=== PATIENT | female | born 1970 | race Caucasian/White ===

== ENCOUNTER 2017-04-29 07:19 | Day surgery (SDC) | payer BC, OTHER ==
[2017-04-25 13:05] VITALS: BMI 23.3
[2017-04-29] MEDS ORDERED: BUPIVACAINE HCL/PF 0.5% (5MG/ML) 10 ML VIAL ONE (08:44)
[2017-04-29] MEDS ORDERED: ePHEDrine SULFATE 50 MG/1 ML AMPULE ONE (08:52)
[2017-04-29] MEDS ORDERED: SUCCINYLCHOLINE CHLORIDE 200 MG/10 ML VIAL ONE (08:52)
[2017-04-29] MEDS ORDERED: PROPOFOL 20 ML ONE (08:52)
[2017-04-29] MEDS ORDERED: MIDAZOLAM HCL 2 MG/2 ML SINGLE DOSE VIAL ONE (08:53)
[2017-04-29] MEDS ORDERED: ROCURONIUM BROMIDE 50 MG/5 ML VIAL ONE (08:53)
[2017-04-29] MEDS ORDERED: LIDOCAINE HCL/PF 2% SDV 5ML VIAL ONE (08:55)
[2017-04-29] MEDS ORDERED: DEXAMETHASONE SOD PHOSPHATE 4 MG/1 ML VIAL ONE (08:55)
[2017-04-29] MEDS ORDERED: DESFLURANE GAS 240 ML BOTTLE IH ONE (08:59)
[2017-04-29] MEDS ORDERED: CLINDAMYCIN 600 MG PREMIX BAG IVPB ONE (09:16)
--- NOTE | 2017-04-29 09:17 | HP ---
Admitting History and Physical - Admission History of Present Illness: 46 yo with hx/o right ovarian cyst, desiring surgical removal. The cyst was initially noticed on ultrasound 09/17/16 where the right ovary measured L-44mm W-34mm H-34mm and demonstrated a simple cyst within measuring 3.2 x 2.5 x 2.5 cm. The left ovary measured L-48mm W-39mm H-32mm and demonstrated a simple cyst within measuring 3.4 x 3.0 x 2.5 cm. A repeat ultrasound was performed on 04/01/2017 which then revealed the right ovary with a complex cyst measuring 4.0 x 4.1 x 3.6 cm, peripheral vascularity is noted. The left ovary had a thinly septated cyst measuring 1.8 x 1.4 x 1.7 cm. She underwent ABELINO testing which revealed a low risk of malignancy 0.49 (CA 125 - 11.4 and HE4 - 41.6) She desires surgical removal History Source: Patient Limitations to Obtaining History: No Limitations - Past Medical History Cardiovascular: No: HTN Pulmonary: No: Asthma ...LMP: 04/11/17 ...: No ...: 2 ...Para: 2 Heme/Onc: No: Anemia - Past Surgical History Additional Past Surgical History: D&C Colonoscopy - Smoking History Smoking history: Current some day smoker Have you smoked in the past 12 months: Yes Aproximately how many cigarettes per day: 5 - Alcohol/Substance Use Hx Alcohol Use: Yes (SOCIAL) History of Substance Use: reports: None - Social History History of Recent Travel: No Home Medications - Allergies Allergies/Adverse Reactions: Allergies Allergy/AdvReac Type Severity Reaction Status Date / Time Penicillins Allergy Vomiting Verified 04/29/17 08:14 Sulfa (Sulfonamide Allergy Vomiting Verified 04/29/17 08:14 Antibiotics) ENVIRONMENTAL Allergy Uncoded 04/29/17 08:14 - Home Medications Home Medications: Ambulatory Orders Nadolol [Corgard -] 20 mg PO BID 07/10/12 Family Disease History - Family Disease History Family History: Denies Review of Systems - Review of Systems Constitutional: reports: No Symptoms Neck: reports: No Symptoms Cardiovascular: reports: No Symptoms Respiratory: reports: No Symptoms Gastrointestinal: reports: No Symptoms Genitourinary: reports: No Symptoms Breasts: reports: No Symptoms Reported Musculoskeletal: reports: No Symptoms Integumentary: reports: No Symptoms Neurological: reports: No Symptoms Endocrine: reports: No Symptoms Hematology/Lymphatic: reports: No Symptoms Psychiatric: reports: No Symptoms Physical Examination Vital Signs: Vital Signs Temperature 98.0 F 04/29/17 08:11 Pulse Rate 71 04/29/17 08:11 Respiratory Rate 20 04/29/17 08:11 Blood Pressure 115/73 04/29/17 08:11 O2 Sat by Pulse Oximetry (%) 99 04/29/17 08:10 Constitutional: Yes: Well Nourished, No Distress, Calm Cardiovascular: Yes: Regular Rate and Rhythm Respiratory: Yes: Regular, CTA Bilaterally Gastrointestinal: Yes: Normal Bowel Sounds, Soft Neurological: Yes: Alert, Oriented Psychiatric: Yes: Alert, Oriented Assessment/Plan 46 yo with R ovarian cyst, desires surgical removal 1. Consents reviewed and signed. Reviewed risks of procedure with patient, including but not limited to infection, bleeding requiring transfusion, damage to surrounding organs such as the bowel, bladder or ureters and their associated repair. We also discussed risk of conversion to laparotomy 2. SCDs/VTE 3. Clinda community relations officer 4. Will proceed to OR
[2017-04-29] MEDS ORDERED: CLINDAMYCIN PHOSPHATE 600 MG/4 ML VIAL ONE (09:24)
[2017-04-29] MEDS ORDERED: GLYCOPYRROLATE 0.2 MG/1 ML VIAL ONE (10:28)
[2017-04-29] MEDS ORDERED: NEOSTIGMINE METHYLSULFATE 0.5 MG/ML - 10 ML MDV ONE (10:28)
--- NOTE | 2017-04-29 10:48 | OP ---
Operative Note - Note: Operative Date: 04/29/17 Pre-Operative Diagnosis: right ovarian cyst Operation: laparoscopic right salpingo oophorectomy Findings: dense adhesions bilateral ovaries to posterior uterus, obliterated cul de sac, mildly dilated left fallopian tube, small clear <1 cm left paratubal cyst Surgeon: Petra Doe Manager Stone: Mamadou Robb Anesthesiologist/ADVANC[employer]URING VICE PRESIDENT: Praful Zambrano Anesthesia: General Estimated Blood Loss (mls): 20 Drains, Volume Out (mls): 300 Fluid Volume Replaced (mls): 1,200 Operative Report Dictated: Yes
[2017-04-29] MEDS ORDERED: ACETAMINOPHEN 325 MG TABLET (FP) PO PRN (10:55)
[2017-04-29] MEDS ORDERED: oxyCODONE HCL 5 MG TABLET PO PRN (10:56)
[2017-04-29] MEDS ORDERED: LACTATED RINGERS SOLUTION 1,000 ML IV SCH (11:00)
[2017-04-29 13:48] VITALS: TEMP 97.7
[2017-04-29 15:02] VITALS: BP 131/80; PULSE 70
--- NOTE | 2017-04-29 20:04 | OP ---
DATE OF OPERATION: 04/29/2017 ATTENDING PHYSICIAN RESPONSIBLE TO SIGN REPORT: Petra Doe MD PREOPERATIVE DIAGNOSIS: Right ovarian cyst. POSTOPERATIVE DIAGNOSIS: Right ovarian cyst. SURGEON: Petra Doe MD JURY CONSULTANT: Mamadou Robb MD ANESTHESIOLOGIST: Praful Zambrano MD FINDINGS: Dense adhesions from bilateral ovaries to posterior uterus, obliterated cul-de-sac, mildly dilated left fallopian tube, a small clear [id number]-[id number]-8-cm paratubal cyst, right ovary with multiple cysts. ANESTHESIA: General. ESTIMATED BLOOD LOSS: Was 20. FLUIDS GIVEN: Were 1200. CLEAR URINE DRAINAGE: Of 300. INDICATIONS: Patient is a 46-year-old, 2, para 2 with history of right ovarian cyst which has increased in size over time, desiring surgical intervention. She was counseling regarding risks, benefits, alternatives, and complications of procedure including infection, bleeding and damage to surrounding organs such as bowel, bladder, ureters or conversion to laparotomy, oophorectomy. She expressed understanding. She was brought to the operating room. When anesthesia was found to be adequate , patient was prepped and draped in normal sterile fashion, placed in dorsal lithotomy position using Aayush stirrups. A Pride catheter was placed to gravity. Clear urine was noted. A sponge stick was placed in the patient's vagina for uterine manipulation as she had an IUD and we did not want to disrupt it. Attention was brought to the patient's abdomen. A 5-mm incision was made with a knife, and a 5-mm trocar was placed under direct visualization. The abdomen was insufflated with carbon dioxide gas to an operative pressure of approximately 16 mmHg. Attention was brought to the left lower quadrant where a 5-mm trocar was placed under direct visualization and the right lower quadrant where a 5-mm trocar was placed under direct visualization. Examination of the abdominal cavity revealed thick, dense adhesions from the posterior cul-de-sac as described above and the right ovary enlarged with ovarian cyst noted. Blunt dissection was performed to free the adhesions from the right ovarian cyst, and the Harmonic electric scalpel was used to resect the fallopian tube. Good hemostasis was noted. Floseal was applied to the ovarian fossa bed. Ovarian cyst was inadvertently entered, and a portion of the cyst wall was left in the abdominal cavity as a pedicle. The left lower quadrant 10- mm port site was closed using a Cristian-Zuniga Inlet Closure device. The pneumoperitoneum was released. Good hemostasis was noted. All instruments and ports were removed from the patient's abdomen. The skin was closed using 4-0 Monocryl in a running fashion. The skin was covered using bandages. The patient tolerated the procedure well. Estimated blood loss was 20 mL. Patient was brought to recovery room in stable condition. Mireya [id number] MTDD
--- NOTE | 2017-04-30 19:08 | PATH ---
Surgical Pathology Report Patient Name: SISI BRADFORD [facility]. Rec. #: [id number] /Age/Gender: 1970 (Age: 46) / F Account: [id number] Location: [facility] SURGICAL Taken: 04/29/2017 Received: 04/29/2017 Reported: 04/30/2017 Physicians: Petra Doe Specimen(s) Received RIGHT OVARY;CYST AND FALLOPIAN TUBE Clinical History Right ovarian cyst Final Diagnosis OVARY, CYST, AND FALLOPIAN TUBE, RIGHT, LAPAROSCOPIC SALPINGO-OOPHORECTOMY: OVARY WITH SEROUS CYSTADENOMA AND HEMORRHAGIC CORPUS LUTEUM CYST. FALLOPIAN TUBE WITH FOCAL ENDOMETRIOSIS. Electronically Signed Anita Rodríguez M.D. Gross Description Received in formalin labeled "right ovary, fallopian tube, cyst," is a 1.8 cm in length fimbriated fallopian tube. The outer surface is pacheco-pink with adhesions. Sectioning reveals an unremarkable lumen. There is a 3.3 x 2.1 x 2.0 cm ovary identified. The outer surface is pacheco-boudreaux with focal defects. Sectioning reveals multiple serous cysts measuring up to 1.4 cm in greatest dimension. Also received within the same container is a 3.2 x 2.0 x 0.3 cm aggregate of pacheco red soft tissue fragments. Home Aide sections are submitted in 6 cassettes as follows: 1-fallopian tube fimbria; 2-cross sections of fallopian tube; 3-6-ypxkniacylgrek ovary with ovarian cysts; 6-entirely submitted separately received soft tissue fragments. 04/29/201704/29/2017
--- NOTE | 2017-05-01 09:33 | PATH ---
Cytology Non-Gynecological Report Patient Name: SISI BRADFORD [facility]. Rec. #: [id number] /Age/Gender: 1970 (Age: 46) / F Account: [id number] Location: [facility] SURGICAL Taken: 04/29/2017 Received: 04/29/2017 Reported: 05/01/2017 Physicians: Petra Doe Specimen(s) Received PELVIC WASHINGS Clinical History Ovarian cyst Final Diagnosis PELVIC WASHING FOR CYTOLOGY: SATISFACTORY FOR EVALUATION. NO MALIGNANT CELLS IDENTIFIED. MESOTHELIAL CELLS PRESENT. Comment: See concurrent material ([id number]). Electronically Signed Anita Rodríguez M.D. Gross Description Approximately 25 cc of pink fluid received fixed in 50% alcohol. Two cytofunnels and one cellblock prepared.
== END 2017-04-29 13:55 | disposition home or self-care (01) ==
LOC: JASU-SURG 07:19 → MERGE 09:00 → JASU-SURG 13:55
PROVIDERS: ATTEND Obstetrics & Gynecology
PROC: 0UB04ZZ Excision of Right Ovary, Percutaneous Endoscopic Approach (ICD-10-PCS; principal; 2017-04-29 09:00)
DX: N83.201 Unspecified ovarian cyst, right side (principal)
CPT/HCPCS: 84703; 88108; 88305-TC; 88307-TC